=== PATIENT | female | born 1985 | race Caucasian/White ===

== ENCOUNTER 2019-05-15 09:08 | Emergency (ER) | payer BC ==
[2019-05-15] MEDS ORDERED: Ondansetron 4 MG Tab.DIS PO ONE (10:06)
[2019-05-15] MEDS ORDERED: Ketorolac 60 MG/2 ML SDV IM ONE (10:06)
--- NOTE | 2019-05-15 10:12 | EDM.PDOC ---
ED HPI GENERAL MEDICAL PROBLEM - General Chief Complaint: General Stated Complaint: FLU SYMPTOMS Time Seen by Provider: 05/15/19 10:03 Source of Information: Reports: Patient History Limitations: Reports: No Limitations - History of Present Illness INITIAL COMMENTS - FREE TEXT/NARRATIVE: HISTORY AND PHYSICAL: History of present illness: Patient is a 34-year-old female who presents to the emergency room with complaints of flulike symptoms. She states she has had generalized body aches, bilateral ear pain, sore throat, dry nonproductive cough and nausea with a few episodes of vomiting. She states she has tried multiple [id number] products without any relief. Patient denies any headache, change in vision, syncope or near syncope. Denies any chest pain, back pain, or shortness of breath. Denies any abdominal pain, diarrhea, constipation or dysuria. Denies any chance of . Patient has been eating and drinking appropriately. Review of systems: As per history of present illness and below otherwise all systems reviewed and negative. Past medical history: As per history of present illness and as reviewed below otherwise noncontributory. Surgical history: As per history of present illness and as reviewed below otherwise noncontributory. Social history: See social history for further information Family history: As per history of present illness and as reviewed below otherwise noncontributory. Physical exam: General: Well-developed and well-nourished 34-year-old female. Alert and oriented. Nontoxic appearing and in no acute distress. HEENT: Atraumatic, normocephalic, pupils equal and reactive bilaterally, negative for conjunctival pallor or scleral icterus, mucous membranes moist, TMs normal bilaterally, throat erythematous without exudate, neck supple, nontender, trachea midline. No drooling or trismus noted. No meningeal signs. No hot potato voice noted. Lungs: Clear to auscultation, breath sounds equal bilaterally, chest nontender. Heart: S1S2, regular rate and rhythm without overt murmur Abdomen: Soft, nondistended, nontender. Negative for masses or hepatosplenomegaly. Negative for costovertebral tenderness. Skin: Intact, warm, dry. No lesions or rashes noted. Extremities: Atraumatic, moves all extremities per self without difficulty or deficits, negative for cords or calf pain. Neurovascular unremarkable. Neuro: Awake, alert, oriented. Cranial nerves II through XII unremarkable. Cerebellum unremarkable. Motor and sensory unremarkable throughout. Exam nonfocal. Notes: Strep screening is positive. Influenza and chest x-ray are unremarkable. Contact precautions and supportive care measures were reviewed and discussed. Voices understanding and is agreeable to plan of care. Denies any further questions or concerns at this time. Diagnostics: CXR, Strep, Influenza Therapeutics: Zofran, Toradol Prescription: Augmentin Phenerg w/ Cod (#4oz) Impression: Strep Throat Plan: 1. Take your medication as directed. Good handwashing and contact precautions as we discussed. 2. Warm Salt water gargles (rinse and spit) 3-4 x daily. Please get a new tooth brush after completion of your medication 3. Tylenol and or ibuprofen as needed for pain management. Phenergan with codeine as needed. This medication may cause drowsiness so do not take it will driving her needing to be functioning outside of the house. 4. Follow-up with your primary care provider in the next 1-2 days. Return to the ED as needed and as discussed. Definitive disposition and diagnosis as appropriate pending reevaluation and review of above. Generalized body Pain Score (Numeric/FACES): 8 - Related Data Allergies Allergy/AdvReac Type Severity Reaction Status Date / Time No Known Allergies Allergy Verified 05/15/19 09:20 Home Meds: Home Meds ClonazePAM [KlonoPIN] 0.5 mg PO ASDIRECTED 05/15/19 [History] Sertraline HCl [Zoloft] 150 mg PO DAILY 05/15/19 [History] Past Medical History - Past Health History Medical/Surgical History: Denies Medical/Surgical History Psychiatric History: Reports: Anxiety - Infectious Disease History Infectious Disease History: Reports: None Social & Family History - Family History Family Medical History: Noncontributory - Tobacco Use Smoking Status *Q: Never Smoker - Caffeine Use Caffeine Use: Reports: Coffee - Recreational Drug Use Recreational Drug Use: No ED ROS GENERAL - Review of Systems Review Of Systems: Comprehensive ROS is negative, except as noted in HPI. ED EXAM, GENERAL - Physical Exam Exam: See Below (See dictation) Course - Vital Signs Last Recorded V/S: Last Vital Signs Temp 98.2 F 05/15/19 09:22 Pulse 95 05/15/19 09:22 Resp 18 12/01/19 09:22 BP 120/87 05/15/19 09:22 Pulse Ox 97 05/15/19 09:22 - Orders/Labs/Meds Orders: Active Orders 24 hr Category Date Time Status Chest 1V Frontal [CR] Stat Exams 05/15/19 09:56 Ordered Meds: Medications Discontinued Medications Generic Name Dose Route Start Last Admin Trade Name Gina PRN Reason Stop Dose Admin Ketorolac Tromethamine 60 mg 05/15/19 10:06 05/15/19 10:18 Toradol IM 05/15/19 10:07 60 mg ONETIME ONE Administration Ondansetron HCl 4 mg 05/15/19 10:06 05/15/19 10:18 Zofran Odt PO 05/15/19 10:07 4 mg ONETIME ONE Administration Departure - Departure Time of Disposition: :19 Disposition: Home, Self-Care 01 Clinical Impression: Strep throat - Discharge Information Instructions: Strep Throat, [id number] Referrals: Allegra Lara NP [Primary Care Provider] - Forms: ED Department Discharge Additional Instructions: The following information is given to patients seen in the emergency department who are being discharged to home. This information is to outline your options for follow-up care. We provide all patients seen in our emergency department with a follow-up referral. The need for follow-up, as well as the timing and circumstances, are variable depending upon the specifics of your emergency department visit. If you don't have a primary care physician on staff, we will provide you with a referral. We always advise you to contact your personal physician following an emergency department visit to inform them of the circumstance of the visit and for follow-up with them and/or the need for any referrals to a consulting specialist. The emergency department will also refer you to a specialist when appropriate. This referral assures that you have the opportunity for follow-up care with a specialist. All of these measure are taken in an effort to provide you with optimal care, which includes your follow-up. Under all circumstances we always encourage you to contact your private physician who remains a resource for coordinating your care. When calling for follow-up care, please make the office aware that this follow-up is from your recent emergency room visit. If for any reason you are refused follow-up, please contact the [facility] Emergency Department at and asked to speak to the emergency department charge nurse. [facility] [address] [place] [address] [facility] [address] [place] [address] 1. Take your medication as directed. Good handwashing and contact precautions as we discussed. 2. Warm Salt water gargles (rinse and spit) 3-4 x daily. Please get a new tooth brush after completion of your medication 3. Tylenol and or ibuprofen as needed for pain management. Phenergan with codeine as needed. This medication may cause drowsiness so do not take it will driving her needing to be functioning outside of the house. 4. Follow-up with your primary care provider in the next 1-2 days. Return to the ED as needed and as discussed.
--- NOTE | 2019-05-15 11:12 | CR ---
Indication: Chest tightness. Technique: Single AP portable view of the chest. Comparison: None Findings: The heart is normal in size. The lungs are clear. No infiltrate, pleural effusion, or pneumothorax is identified. Impression: No acute cardiopulmonary process Dictated by Grace Alvarenga MD @ May 15 2019 11:10AM Signed by Dr. Grace Alvarenga @ May 15 2019 11:11AM
== END 2019-05-15 10:45 | disposition home or self-care (01) ==
LOC: MW.ED 09:08
DX: J02.0 Streptococcal pharyngitis (principal); F41.9 Anxiety disorder, unspecified; Z79.899 Other long term (current) drug therapy
CPT/HCPCS: 71045; 87804; 87880; 96372; 99284; A9270; J1885; 99283

== ENCOUNTER 2022-07-27 22:38 | Emergency (ER) | payer BC ==
[2022-07-27] MEDS ORDERED: Ondansetron 4 MG/2 ML SDV IVPUSH ONE (22:46)
[2022-07-27] MEDS ORDERED: Dextrose 5%-Lactated Ringers 1,000 ML IV STA (22:46)
[2022-07-27] MEDS ORDERED: Lactated Ringers 1,000 ML IV STA (23:06)
[2022-07-27 23:35] LABS: CARBON DIOXIDE,CO2 24.2 mmol/L (21.0-32.0); POTASSIUM,K 3.9 mmol/L (3.5-5.1)
[2022-07-27] MEDS ORDERED: diphenhydrAMINE 50 MG/ML SDV IVPUSH ONE (23:50)
[2022-07-28] MEDS ORDERED: Ondansetron 4 MG/2 ML SDV IVPUSH ONE (01:34)
[2022-07-28] MEDS ORDERED: Sodium Chloride 0.9% 1,000 ML IV SCH (01:45)
[2022-07-28 02:18] LABS: CORONAVIRUS COVID-19 NAA NEGATIVE (NEGATIVE); INFLUENZA A NAA NEGATIVE (NEGATIVE); INFLUENZA B NAA NEGATIVE (NEGATIVE)
[2022-07-28] MEDS ORDERED: Iopamidol 755 MG/ML 500 ML Multipack Bottle IVPUSH ONE (02:44)
[2022-07-28] MEDS ORDERED: Haloperidol Lactate 5 MG/ML SDV IM ONE (02:51)
[2022-07-28] MEDS ORDERED: diphenhydrAMINE 50 MG/ML SDV IVPUSH ONE (02:51)
[2022-07-28] MEDS ORDERED: Magnesium Sulfate/Water 2 GM in Premix Bag 1 BAG IV ONE (02:52)
== END 2022-07-28 05:39 | disposition home or self-care (01) ==
LOC: MW.ED 22:38
DX: N83.201 Unspecified ovarian cyst, right side (principal); R11.2 Nausea with vomiting, unspecified; R19.7 Diarrhea, unspecified; Z20.822 Contact with and (suspected) exposure to COVID-19
CPT/HCPCS: 0240U; 36415; 74177; 80053; 81003; 81025; 83690; 85025; 93005; 96361; 96365; 96366; 96372; 96375; 96376; 99284; J1200; J1630; J2405; J3475; J7030; J7120; J7121; Q9967; 93010